=== PATIENT | female | born 1990 | race Two or more races ===

== ENCOUNTER 2019-05-10 14:59 | Emergency (ER) | payer MEDICAID ==
[~2019-05-10] VITALS: Ht 167.6 cm; Wt 49.9 kg
[2019-05-10 15:08] VITALS: BP 107/76
--- NOTE | 2019-05-10 15:08 | NUR ---
AT BEDSIDE FOR EVAL.
[2019-05-10] MEDS ORDERED: clonazePAM 1 MG TABLET ONE (15:18)
--- NOTE | 2019-05-10 15:27 | NUR ---
Patient discharged to home in stable condition. Written and verbal after care instructions given. Patient verbalizes understanding of instruction.
[2019-05-10] MEDS ORDERED: clonazePAM 1 MG TABLET PO ONE (15:30)
== END 2019-05-10 15:28 | disposition home or self-care (01) ==
LOC: ER 15:08
DX: F41.9 Anxiety disorder, unspecified (principal); Z76.0 Encounter for issue of repeat prescription

== ENCOUNTER 2019-07-10 18:39 | Emergency (ER) | payer OTHER, MEDICAID ==
[~2019-07-10] VITALS: Ht 167.6 cm; Wt 40.8 kg
--- NOTE | 2019-07-10 19:06 | NUR ---
PT AAOX4. AMBULATORY WITH STEADY GAIT. CAME IN WITH [facility]. REQUESTING MEDICATION FOR CHRONIC PAIN FROM FIBROMYALGIA.
[2019-07-10] MEDS ORDERED: IBUPROFEN 400 MG TABLET ONE (19:21)
[2019-07-10] MEDS ORDERED: ACETAMINOPHEN 325 MG TABLET ONE (19:22)
[2019-07-10] MEDS ORDERED: ACETAMINOPHEN 325 MG TABLET PO ONE (19:30)
[2019-07-10] MEDS ORDERED: IBUPROFEN 400 MG TABLET PO ONE (19:30)
--- NOTE | 2019-07-10 19:32 | NUR ---
Patient discharged to home in stable condition. Written and verbal after care instructions given. Patient verbalizes understanding of instruction. Pt denies pain. VSS.
[2019-07-10 19:33] VITALS: BP 112/72
== END 2019-07-10 19:33 | disposition home or self-care (01) ==
LOC: ER 18:41
DX: G89.29 Other chronic pain (principal); R63.6 Underweight; Z76.5 Malingerer [conscious simulation]; M79.7 Fibromyalgia; F41.9 Anxiety disorder, unspecified; Z68.1 Body mass index [BMI] 19.9 or less, adult